=== PATIENT | female | born 1960 | race Caucasian/White ===

== ENCOUNTER → 2018-12-23 | Outpatient (CLI) | payer OTHER | LOC: YCFC.O 11:46 | PROVIDERS: ATTEND Nurse Practitioner | DX: Z00.00 Encounter for general adult medical examination without abnormal findings (principal); E11.65 Type 2 diabetes mellitus with hyperglycemia ==

== ENCOUNTER 2019-03-27 00:08 | Emergency (ER) | payer OTHER ==
[2019-03-27 00:20] VITALS: TEMP 97.6
[2019-03-27] MEDS ORDERED: SODIUM CHLORIDE 0.9% 1000ML 1,000 ML IVS ONE (00:29)
[2019-03-27] MEDS ORDERED: ONDANSETRON INJ 4 MG/2 ML VIAL IV ONE (00:29)
[2019-03-27] MEDS ORDERED: SODIUM CHLORIDE 0.9% (FLUSH) 10 ML SYG IV PRN (00:29)
[2019-03-27] MEDS ORDERED: MORPHINE SULFATE INJ 10 MG/ML VIAL IV ONE (00:30)
--- NOTE | 2019-03-27 00:34 | ED.PDOC ---
History of Present Illness - General Chief Complaint: GI Problem Stated Complaint: nausea, vomiting Time Seen by Provider: 03/27/19 00:25 - History of Present Illness Initial Comments: The patient is a 59 year old with PMH significant for HTN, DM, arthritis who presents to the ED with abdominal pain and vomiting. States that she has had "stomach upset" for the past week or two which she describes as intermittent cramping pain associated with increased belching. She was feeling generally well today but this evening started vomiting, having diffuse cramping pain. Associated symptoms include generalized body aches. She denies fever, diarrhea, dysuria. No other complaints at this time. Review of Systems - Review of Systems Constitutional: States: chills. Denies: fever EENTM: States: no symptoms reported Respiratory: Denies: cough, short of breath Cardiology: Denies: chest pain, palpitations Gastrointestinal/Abdominal: States: abdominal pain, nausea, vomiting. Denies: diarrhea Genitourinary: Denies: no symptoms reported, dysuria Musculoskeletal: States: no symptoms reported Skin: States: no symptoms reported Neurological: States: no symptoms reported Endocrine: States: no symptoms reported Hematologic/Lymphatic: States: no symptoms reported All other Systems: Reviewed and Negative Past Medical History (General) - Patient Medical History Hx Hypertension: Yes Hx Diabetes: Yes Surgical History: appendectomy, cholecystectomy - Vaccination History Hx Tetanus, Diphtheria Vaccination: No Hx Influenza Vaccination: No Hx Pneumococcal Vaccination: No - Social History Hx Tobacco Use: No Hx Alcohol Use: No Family Medical History - Family History Mother Family History: Unknown Physical Exam - Physical Exam General Appearance: Anxious, Ill Appearing, Obese, Restless Eyes, Ears, Nose, Throat Exam: normal ENT inspection Neck: non-tender, full range of motion Respiratory: lungs clear, normal breath sounds Cardiovascular/Chest: regular rate, rhythm, no murmur Gastrointestinal/Abdominal: normal bowel sounds, soft, tenderness - mild, diffuse tenderness without guarding Neurologic: no motor/sensory deficits, alert, oriented x 3 Progress - Progress Progress: 03/27/19 01:26 Patient reassessed, workup as below. Repeat abdominal exam is benign. She is s/p cholecystectomy and appendectomy. She does not have peritonitis or focal findings. She feels better, tolerating PO. Will continue outpatient symptomatic management and she will follow up with her PCP. MDM: Patient presents with myalgias, generalized abdominal pain and vomiting. N ormal bowel movements, clinically not suggestive of acute obstruction. Abdominal exam is without peritonitis and she is s/p adair, appy. Labs reassuring, repeat abdominal exam benign and symptoms improved. Likely acute viral syndrome, will continue outpatient symptomatic mangaement and pcp f/u. Return indications reviewed. - Results/Orders Results/Orders: 03/27/19 00:23 UA [URINALYSIS] Stat 03/27/19 00:29 IV Care:Saline Lock per Protoc QSHIFT Sodium Chloride 0.9% (Flush) [Saline Flush Syringe] 10 ml IV PRN PRN Sodium Chloride 0.9% 1000ML [Ns 1000 ml] 1,000 ml IVS ONCE URINALYSIS Stat 03/27/19 00:30 EKG STAT Laboratory Results - last 24 hr 03/27/19 03/27/19 00:38 00:38 WBC 7.3 RBC 4.96 Hgb 13.7 Hct 41.1 MCV 82.9 MCH 27.6 MCHC 33.3 RDW 14.0 Plt Count 237 MPV 8.2 Absolute Neuts (auto) 6.10 Absolute Lymphs (auto) 0.70 L Absolute Monos (auto) 0.40 Absolute Eos (auto) 0.10 Absolute Basos (auto) 0.00 Neutrophils % 83.2 H Lymphocytes % 10.0 L Monocytes % 5.3 Eosinophils % 1.1 Basophils % 0.4 Sodium 137 Potassium 3.7 Chloride 103 Carbon Dioxide 24 Anion Gap 13.7 BUN 22 H Creatinine 0.43 L BUN/Creatinine Ratio 51.2 H Random Glucose 283 H Serum Osmolality 287.4 Calcium 8.8 Total Bilirubin 1.1 H Direct Bilirubin 0.2 Indirect Bilirubin 0.9 H AST 25 ALT 12 Alkaline Phosphatase 88 Serum Total Protein 7.4 Albumin 3.9 Lipase 17 L - EKG/XRAY/CT Comments: 0045 sinus tachycardia 110, incomplete RBBB, no STEMI Departure - Departure Clinical Impression: Abdominal pain Qualifiers: Abdominal location: generalized Qualified Code(s): R10.84 - Generalized abdominal pain Nausea and vomiting Qualifiers: Vomiting type: unspecified Vomiting Intractability: non-intractable Qualified Code(s): R11.2 - Nausea with vomiting, unspecified Time of Disposition: :29 Disposition: Discharge to Home or Self Care Condition: Fair Departure Forms: ED Discharge - Pt. Copy, Patient Portal Self Enrollment Instructions: DI for Abdominal Pain-Adult, Nausea and Vomiting, Adult (DC) Referrals: Alanis Shrestha FNP [Primary Care Provider] - 1-2 Weeks Prescriptions: Dicyclomine HCl [Bentyl] 20 mg PO Q6HR #20 tab Ondansetron HCl [Zofran] 4 mg PO Q6HR PRN #20 tab PRN Reason: Nausea Home Medications: Ambulatory Orders Atorvastatin Calcium [Lipitor] 10 mg PO DAILY 03/27/19 Carvedilol 6.25 mg PO DAILY 03/27/19 Dicyclomine HCl [Bentyl] 20 mg PO Q6HR #20 tab 03/27/19 Duloxetine HCl 60 mg PO DAILY 03/27/19 Furosemide [Lasix] 20 mg PO DAILY 03/27/19 Human Insulin Aspart [Novolog] 100 unit SC 03/27/19 Insulin Glargine 100U/ml [Lantus] unit SUBCU DAILY 03/27/19 Lisinopril 30 mg PO DAILY 03/27/19 Meloxicam 15 mg PO DAILY 03/27/19 Ondansetron HCl [Zofran] 4 mg PO Q6HR PRN #20 tab 03/27/19 Comments: Kye Moya MD Emergency Medicine Physician number [id number]
[2019-03-27 01:30] VITALS: BP 143/78; O2SAT 94
== END 2019-03-27 01:37 | disposition home or self-care (01) ==
LOC: ER 00:08
DX: R11.2 Nausea with vomiting, unspecified (principal); R00.0 Tachycardia, unspecified; I45.10 Unspecified right bundle-branch block; I10 Essential (primary) hypertension; E11.9 Type 2 diabetes mellitus without complications; Z90.49 Acquired absence of other specified parts of digestive tract; Z79.4 Long term (current) use of insulin; Z79.899 Other long term (current) drug therapy
CPT/HCPCS: 80048; 80076; 83690; 85025; 93005; J2270; J2405; J7030

== ENCOUNTER → 2019-03-31 | Outpatient (CLI) | payer OTHER ==
--- NOTE | 2019-04-01 10:30 | RAD ---
Procedure: XR ABDOMEN 1 VIEW (KUB) Exam Date: 03/31/2019 Ordering Provider: Alanis Shrestha Clinical Indication: ABDOMINAL BLOATING AND DISTENTION. Comparison: None Findings: Nonobstructive bowel gas pattern. Moderate to large colonic stool burden. There is no pneumoperitoneum. There are no suspicious calcifications. There is no acute osseous abnormality. Lumbar spondylosis. Impression: 1. Moderate to large colonic stool burden. Electronically signed by: Chong Lua MD 04/01/2019 10:28 AM [facility]
== END ==
LOC: YCFC.O 16:19
PROVIDERS: ATTEND Nurse Practitioner
DX: R14.0 Abdominal distension (gaseous) (principal); E11.65 Type 2 diabetes mellitus with hyperglycemia; Z51.81 Encounter for therapeutic drug level monitoring

== ENCOUNTER 2019-09-14 17:33 | Emergency (ER) | payer OTHER ==
[2019-09-14 17:46] VITALS: BP 154/88; TEMP 97.8; O2SAT 96
--- NOTE | 2019-09-14 17:51 | ED.PDOC ---
History of Present Illness - General Chief Complaint: ENT Problem Stated Complaint: sore throat Time Seen by Provider: 09/14/19 17:39 - History of Present Illness Initial Comments: 59 y/o female with sudden onset of sore throat today at 3 pm. She has a history of tonsillitis that has formed an abscess. She reports this has been happening ever since she started having sinus trouble. No cough, no fever, no body aches. Allergies/Adverse Reactions: Allergies NO KNOWN ALLERGY Allergy (Verified 03/27/19 00:22) Home Medications: Ambulatory Orders Atorvastatin Calcium [Lipitor] 10 mg PO DAILY 03/27/19 Carvedilol 6.25 mg PO DAILY 03/27/19 Duloxetine HCl 60 mg PO DAILY 03/27/19 Furosemide [Lasix] 20 mg PO DAILY 03/27/19 Human Insulin Aspart [Novolog] 100 unit SC 03/27/19 Insulin Glargine 100U/ml [Lantus] unit SUBCU DAILY 03/27/19 Lisinopril 30 mg PO DAILY 03/27/19 Meloxicam 15 mg PO DAILY 03/27/19 Amoxicillin 500 mg PO TID #30 cap 09/14/19 Methylprednisolone [Medrol Dose Manuel] 4 mg PO DAILY 6 Days #21 tab 09/14/19 Review of Systems - Review of Systems Constitutional: States: no symptoms reported EENTM: States: throat pain, throat swelling Respiratory: States: no symptoms reported Cardiology: States: no symptoms reported Gastrointestinal/Abdominal: States: no symptoms reported Musculoskeletal: States: no symptoms reported Skin: States: no symptoms reported Neurological: States: no symptoms reported Past Medical History (General) - Patient Medical History Hx Stroke: No Hx Congestive Heart Failure: No Hx Hypertension: Yes Hx Diabetes: Yes Surgical History: cholecystectomy - Vaccination History Hx Tetanus, Diphtheria Vaccination: No Hx Influenza Vaccination: No Hx Pneumococcal Vaccination: Yes - Social History Hx Tobacco Use: Yes Hx Alcohol Use: No Family Medical History - Family History Mother Family History: Unknown Physical Exam - Physical Exam General Appearance: Alert, No apparent distress Eye Exam: bilateral normal Ear Exam: bilateral ear: auricle normal Nasal Exam: normal inspection Throat Exam: pharynx swelling, uvula swelling, other - posterior pharynx with erythema and edema already pushing the uvula to the left. No visible exudate Neck: non-tender, full range of motion, supple, trachea midline, lymphadenopathy (R) Cardiovascular/Respiratory: regular rate, rhythm, no M/R/G, normal breath sounds, no respiratory distress Departure - Departure Clinical Impression: Tonsillitis Disposition: Discharge to Home or Self Care Condition: Good Departure Forms: ED Discharge - Pt. Copy, Patient Portal Self Enrollment Instructions: DI for Ear Pain-Adult, Sore Throat in Adults Referrals: Alanis Shrestha FNP [Primary Care Provider] - 1-2 Weeks Prescriptions: Amoxicillin 500 mg PO TID #30 cap Methylprednisolone [Medrol Dose Manuel] 4 mg PO DAILY 6 Days #21 tab Home Medications: Ambulatory Orders Atorvastatin Calcium [Lipitor] 10 mg PO DAILY 03/27/19 Carvedilol 6.25 mg PO DAILY 03/27/19 Duloxetine HCl 60 mg PO DAILY 03/27/19 Furosemide [Lasix] 20 mg PO DAILY 03/27/19 Human Insulin Aspart [Novolog] 100 unit SC 03/27/19 Insulin Glargine 100U/ml [Lantus] unit SUBCU DAILY 03/27/19 Lisinopril 30 mg PO DAILY 03/27/19 Meloxicam 15 mg PO DAILY 03/27/19 Amoxicillin 500 mg PO TID #30 cap 09/14/19 Methylprednisolone [Medrol Dose Manuel] 4 mg PO DAILY 6 Days #21 tab 09/14/19
[2019-09-14] MEDS: AMOXICILLIN 500 MG CAP PO ONE (18:01)
[2019-09-14] MEDS: methylPREDNISolone SODIUM SUC 125 MG/2 ML VIAL IM ONE (18:01)
== END 2019-09-14 18:20 | disposition home or self-care (01) ==
LOC: ER 17:33
DX: J03.90 Acute tonsillitis, unspecified (principal); E11.9 Type 2 diabetes mellitus without complications; I10 Essential (primary) hypertension; Z79.4 Long term (current) use of insulin; Z79.899 Other long term (current) drug therapy

== ENCOUNTER → 2019-09-14 | Outpatient (CLI) | payer OTHER | LOC: YCFC.O 18:29 | PROVIDERS: ATTEND Nurse Practitioner | DX: E11.65 Type 2 diabetes mellitus with hyperglycemia (principal) ==